=== PATIENT | male | born 1970 ===

== ENCOUNTER 2023-10-06 13:03 | Inpatient (IN) | payer OTHER ==
[2023-10-06 13:29] VITALS: BMI 21.7
[2023-10-06] MEDS ORDERED: guaiFENesin 600 MG TABLET.ER (FP) PO PRN (15:21)
[2023-10-06] MEDS ORDERED: ONDANSETRON *ODT* 4 MG TABLET SL PRN (15:21)
[2023-10-06] MEDS ORDERED: NALOXONE HCL 0.4 MG/ML VIAL IM PRN (15:21)
[2023-10-06] MEDS ORDERED: ACETAMINOPHEN 325 MG TABLET (FP) PO PRN (15:21)
[2023-10-06] MEDS ORDERED: IBUPROFEN 400 MG TABLET (FP) PO PRN (15:21)
[2023-10-06] MEDS ORDERED: BENZOCAINE/MENTHOL (CHLORASEPTIC ) LOZENGE MM PRN (15:21)
[2023-10-06] MEDS ORDERED: MAGNESIUM HYDROX 2400MG/30ML ORAL SUSPENSION 30 ML CUP PO PRN (15:21)
[2023-10-06] MEDS ORDERED: NALOXONE HCL (KLOXXADO) 8 MG SPRAY NS PRN (15:21)
[2023-10-06] MEDS ORDERED: LORazepam 1 MG TABLET PO PRN (15:21)
[2023-10-06] MEDS ORDERED: IBUPROFEN 600 MG TABLET (FP) PO PRN (15:21)
[2023-10-06] MEDS ORDERED: BENZONATATE 200 MG CAPSULE PO PRN (15:21)
[2023-10-06] MEDS ORDERED: LOPERAMIDE HCL 2 MG CAPSULE PO PRN (15:21)
[2023-10-06] MEDS ORDERED: BISMUTH SUBSALICYLATE 262 MG/15 ML BTL PO PRN (15:21)
[2023-10-06] MEDS ORDERED: DICYCLOMINE HCL 10 MG CAPSULE PO PRN (15:21)
[2023-10-06] MEDS ORDERED: POLYETHYLENE GLYCOL (HEALTHYLAX) 3350 17 GM PACKET PO PRN (15:21)
[2023-10-06] MEDS ORDERED: METHOCARBAMOL 500 MG TABLET PO PRN (15:21)
[2023-10-06] MEDS: NICOTINE 14 MG/24 HOURS TOPICAL PATCH TD SCH (15:49)
[2023-10-06] MEDS: PRENATAL VITAMINS W/ FOLIC ACID TABLET (FP) PO SCH (15:50)
[2023-10-06] MEDS ORDERED: cloNIDine HCL 0.1 MG TABLET ONE (16:01)
[2023-10-06] MEDS: cloNIDine HCL 0.1 MG TABLET PO STA (16:04)
[2023-10-06] MEDS: LORazepam 2 MG TABLET PO SCH (17:07)
[2023-10-06] MEDS: MELATONIN 5 MG TABLETS PO SCH (22:22)
[2023-10-06] MEDS: THIAMINE HCL 100 MG TABLET (FP) PO SCH (22:22)
[2023-10-06] MEDS: MAG HYDROX/AL HYDROX/SIMETH 30 ML UNIT-DOSE CUP PO PRN (22:23)
[2023-10-07] MEDS: cloNIDine HCL 0.1 MG TABLET PO PRN (07:30)
[2023-10-07 12:11] LABS: HEMATOCRIT 31.8 % (35.4-49); HEMOGLOBIN 10.7 GM/dL (11.7-16.9); MCH 30.4 pg (25.7-33.7); MCHC 33.8 g/dl (32.0-35.9); MEAN PLT VOLUME 7.4 fl (7.5-11.1); PLATELET COUNT 294 10^3/uL (134-434); RBC 3.54 M/mm3 (4.00-5.60); RDW 13.1 % (11.9-15.9); WHITE BLOOD COUNT 6.4 K/mm3 (4.0-10.0)
[2023-10-07 13:55] LABS: CHLORIDE 108 mmol/L (98-107); POTASSIUM 3.5 mmol/L (3.5-5.1); SODIUM 141 mmol/L (136-145)
[2023-10-07 14:02] LABS: CALCIUM 8.1 mg/dL (8.5-10.1)
[2023-10-07 14:03] LABS: ALBUMIN 2.4 g/dl (3.4-5.0); ANION GAP 5 mmol/L (4-13); CO2 28 mmol/L (21-32); GLUCOSE,RANDOM 104 mg/dL (74-106)
[2023-10-07 14:06] LABS: CREATININE 0.9 mg/dL (0.55-1.3); SGOT/AST 23 U/L (15-37)
[2023-10-07 14:07] LABS: BILIRUBIN,TOTAL 0.4 mg/dL (0.2-1); TOT PROT 5.8 g/dl (6.4-8.2)
[2023-10-07 14:13] LABS: ALK PHOS 56 U/L (45-117)
[2023-10-07 14:18] LABS: SGPT/ALT 29 U/L (13-61)
[2023-10-08] MEDS: LORazepam 1 MG TABLET PO SCH (05:52)
[2023-10-08] MEDS: traZODone HCL 50 MG TABLET (FP) PO SCH (22:25)
[2023-10-09] MEDS ORDERED: LORazepam 0.5 MG TABLET PO PRN
[2023-10-09] MEDS: LORazepam 0.5 MG TABLET PO SCH (06:25)
[2023-10-09] MEDS: hydrOXYzine PAMOATE 25 MG CAPSULE (FP) PO PRN (17:36)
[2023-10-09] MEDS: cloNIDine HCL 0.1 MG TABLET PO ONE (19:49)
[2023-10-10] MEDS: LORazepam 0.5 MG TABLET PO ONE (05:55)
[2023-10-10 06:20] VITALS: RESP 18
[2023-10-10 09:54] VITALS: BP 159/100; PULSE 100; TEMP 97.3
== END 2023-10-10 09:43 | disposition home or self-care (01) | DRG 774 ==
LOC: YASAS 13:03 → Y3N 15:53
PROVIDERS: ADMIT Allergy & Immunology; ATTEND Surgery
PROC: HZ2ZZZZ Detoxification Services for Substance Abuse Treatment (ICD-10-PCS; principal; 2023-10-06)
DX: F10.230 Alcohol dependence with withdrawal, uncomplicated (principal); F14.20 Cocaine dependence, uncomplicated; F12.20 Cannabis dependence, uncomplicated; F17.210 Nicotine dependence, cigarettes, uncomplicated; F41.9 Anxiety disorder, unspecified; H40.9 Unspecified glaucoma; I10 Essential (primary) hypertension; R76.8 Other specified abnormal immunological findings in serum; Z62.810 Personal history of physical and sexual abuse in childhood; Z86.69 Personal history of other diseases of the nervous system and sense organs; Z59.00 Homelessness unspecified
CPT/HCPCS: 36415; 80053; 80307; 85027; 86593; 86780; 87635; 87811; 93005; 93010